=== PATIENT | female | born 1955 | race Caucasian/White ===

== ENCOUNTER → 2020-07-26 | Outpatient (CLI) | payer MEDICARE ==
[~2020-07-26] MED LIST: MIRALAX17 GM PO
== END ==
LOC: MAMO 14:00
DX: Z12.31 Encounter for screening mammogram for malignant neoplasm of breast (principal); Z85.3 Personal history of malignant neoplasm of breast
CPT/HCPCS: 77065; G0279

== ENCOUNTER 2020-09-03 11:10 | Emergency (ER) | payer MEDICARE ==
[2020-09-03 11:42] LABS: HEMOGLOBIN 15.1 gm/dl (12.3-15.3); RED BLOOD COUNT 5.11 M/UL (4.00-5.10); WHITE BLOOD COUNT 6.9 K/UL (4.5-11.0)
[2020-09-03 12:07] LABS: BUN/CREATININE RATIO 13 (0-10)
[2020-09-03] MEDS ORDERED: MIRALAX17 GM PO (14:47)
== END 2020-09-03 15:45 | disposition home or self-care (01) ==
LOC: ER1 11:10
PROVIDERS: Family Medicine
DX: N28.89 Other specified disorders of kidney and ureter (principal); K59.00 Constipation, unspecified; E11.65 Type 2 diabetes mellitus with hyperglycemia; Z85.3 Personal history of malignant neoplasm of breast; Z90.710 Acquired absence of both cervix and uterus
CPT/HCPCS: 80053; 81001; 83690; 85025; 99284; Q9967

== ENCOUNTER → 2021-06-21 | Outpatient (CLI) | payer MEDICARE | LOC: MAMO 10:00 | DX: Z12.31 Encounter for screening mammogram for malignant neoplasm of breast (principal) | CPT/HCPCS: 77063; 77067 ==

== ENCOUNTER → 2021-07-03 | Outpatient (CLI) | payer MEDICARE | LOC: US 07:42 | DX: K76.0 Fatty (change of) liver, not elsewhere classified (principal); Z90.49 Acquired absence of other specified parts of digestive tract | CPT/HCPCS: 76700 ==